=== PATIENT | female | born 1950 | race Native Hawaiian/Other Pacific Islander ===

== ENCOUNTER 2018-03-17 11:37 | Outpatient (CLI) | payer OTHER | END 2018-03-17 19:48 | disposition home or self-care (01) | LOC: MAMMO 11:37 | DX: Z12.31 Encounter for screening mammogram for malignant neoplasm of breast (principal) ==

== ENCOUNTER 2018-04-17 08:45 | Outpatient (CLI) | payer OTHER | END 2018-04-17 20:06 | disposition home or self-care (01) | LOC: MAMMO 08:45 | DX: R92.8 Other abnormal and inconclusive findings on diagnostic imaging of breast (principal) ==

== ENCOUNTER 2019-03-26 15:58 | Outpatient (CLI) | payer OTHER ==
[2019-03-26 16:27] LABS: PLATELET COUNT 129 K/uL (152-353)
[2019-03-26 16:32] LABS: POTASSIUM 4.1 mmol/L (3.6-5.2)
== END 2019-03-26 19:33 | disposition home or self-care (01) ==
LOC: LAB 15:58
PROVIDERS: Nurse Practitioner
DX: E11.40 Type 2 diabetes mellitus with diabetic neuropathy, unspecified (principal); I10 Essential (primary) hypertension; E03.8 Other specified hypothyroidism; E78.00 Pure hypercholesterolemia, unspecified; E55.9 Vitamin D deficiency, unspecified
CPT/HCPCS: 80053; 80061; 82043; 82306; 82570; 83036; 84443; 85027

== ENCOUNTER 2019-05-06 10:29 | Outpatient (CLI) | payer OTHER | END 2019-05-06 21:37 | disposition home or self-care (01) | LOC: RAD 10:29 | DX: M25.475 Effusion, left foot (principal); W19.XXXA Unspecified fall, initial encounter ==